=== PATIENT | male | born 1960 | race Caucasian/White ===

== ENCOUNTER 2020-10-30 04:11 | Inpatient (IN) | payer MEDICARE, MEDICAID ==
[~2020-10-30] VITALS: Ht 167.6 cm; Wt 64.2 kg
[~2020-10-30 04:11] MED LIST: HALOD50I IM
[2020-10-30 04:55] LABS: GLUCOSE,POINT OF CARE 126 MG/DL (70-110)
[2020-10-30 05:28] LABS: EOSINOPHILS % (AUTO) 7.1 % (1.0-6.0); HEMATOCRIT 38.7 % (41-53); HEMOGLOBIN 13.2 g/dL (13.5-17.5); LYMPHOCYTES # (AUTO) 2.1 K/uL (1.0-4.8); LYMPHOCYTES % (AUTO) 23.3 % (22.0-44.0); MEAN CORPUSCULAR HEMOGLOBIN 29.9 pg (26.0-34.0); MEAN CORPUSCULAR HGB CONC 34.1 G/dL (31.0-37.0); MEAN CORPUSCULAR VOLUME 88 fL (80-100); MONOCYTES # (AUTO) 0.9 K/uL (0.1-1.0); MONOCYTES % (AUTO) 10.2 % (2.0-9.0); NEUTROPHILS # (AUTO) 5.2 K/uL (1.8-7.7); NEUTROPHILS % (AUTO) 58.4 % (40.0-70.0); PLATELET COUNT (AUTO) 216 K/uL (150-450); RED BLOOD CELL COUNT(AUTO) 4.41 MIL/uL (4.50-5.90); RED CELL DISTRIBUTION WIDTH 14.3 % (11.5-14.5)
[2020-10-30 05:33] LABS: ANION GAP 9 mmol/L (8-16); CALCIUM, TOTAL 9.3 mg/dL (8.8-10.5); CARBON DIOXIDE 29 mmol/L (22-29); CHLORIDE 104 mmol/L (98-107); GLOMERULAR FILTR. RATE CALC > 60 mL/min (>60); GLUCOSE,RANDOM 85 mg/dL (70-110); POTASSIUM 3.7 mmol/L (3.5-5.1); SODIUM SERUM 142 mmol/L (136-145); UREA NITROGEN, BLOOD 16 mg/dL (7-18)
[2020-10-30 05:39] LABS: ALANINE AMINOTRANSFERASE 25 U/L (12-78); ALBUMIN 3.3 g/dL (3.4-5.0); ALKALINE PHOSPHATASE 93 U/L (46-116); ASPARTATE AMINOTRANSFERASE 51 U/L (15-37); BILIRUBIN,TOTAL 0.2 mg/dL (0.1-1.0); TOTAL PROTEIN, SERUM 7.3 g/dL (6.4-8.2)
[2020-10-30 05:53] LABS: AMPHET/METH SCREEN,URINE NEGATIVE (NEGATIVE); BARBITURATE SCREEN, URINE NEGATIVE (NEGATIVE); BENZODIAZEPINES SCREEN,URINE NEGATIVE (NEGATIVE); CANNABINOID SCREEN,URINE NEGATIVE (NEGATIVE); COCAINE SCREEN,URINE NEGATIVE (NEGATIVE); METHADONE SCREEN, URINE NEGATIVE (NEGATIVE); OPIATE SCREEN,URINE NEGATIVE (NEGATIVE)
[2020-10-30 05:56] LABS: PHENCYCLIDINE SCREEN,URINE NEGATIVE (NEGATIVE)
[2020-10-30 06:43] LABS: COVID AG,FIA SOURCE NASOPHARYNGEAL
[2020-10-30] MEDS ORDERED: PNEUMOCOCCAL VACCINE POLYVALENT 0.5 ML VIAL [PPSV23] IM. ONE (11:00)
[2020-10-30 11:03] LABS: GLUCOMETER DEV NAME(LOC) BV2S.; GLUCOSE,POINT OF CARE 83 MG/DL (70-110)
[2020-10-30] MEDS: ARIPiprazole 10 MG TABLET PO SCH (11:52)
[2020-10-30] MEDS: ESCITALOPRAM OXALATE 10 MG TABLET PO SCH (11:53)
[2020-10-30 16:06] VITALS: BP 125/74
[2020-10-30] MEDS: COLLOIDAL OATMEAL/DIMETH 227 GM LOTION TP SCH (16:13)
[2020-10-30] MEDS: NICOTINE 14 MG/24 HOUR PATCH TD SCH (16:13)
[2020-10-31 05:10] VITALS: BP 133/78
[2020-10-31 08:06] VITALS: BP 122/73
[2020-10-31] MEDS: NICOTINE 14 MG/24 HOUR PATCH TD SCH (09:00)
[2020-10-31] MEDS ORDERED: NICOTINE 14 MG/24 HOUR PATCH TD SCH (09:00)
[2020-10-31] MEDS: ARIPiprazole 10 MG TABLET PO SCH (09:00)
[2020-10-31] MEDS: ESCITALOPRAM OXALATE 10 MG TABLET PO SCH (09:00)
[2020-10-31] MEDS: COLLOIDAL OATMEAL/DIMETH 227 GM LOTION TP SCH ×2 (09:00→16:57)
[2020-10-31 16:02] VITALS: BP 111/61
[2020-11-01 01:08] VITALS: BP 149/75
[2020-11-01 07:50] LABS: CHOL/HDL RATIO 2.9 (4.2-7.3)
[2020-11-01] MEDS: ESCITALOPRAM OXALATE 10 MG TABLET PO SCH (08:07)
[2020-11-01] MEDS: ARIPiprazole 10 MG TABLET PO SCH (08:07)
[2020-11-01] MEDS: NICOTINE 14 MG/24 HOUR PATCH TD SCH (08:07)
[2020-11-01] MEDS: COLLOIDAL OATMEAL/DIMETH 227 GM LOTION TP SCH ×2 (08:08→17:15)
[2020-11-01 08:13] VITALS: BP 127/66
[2020-11-01 08:20] LABS: MAGNESIUM 2.2 mg/dL (1.80-2.40); THYROID STIMULATING HORMONE 3.35 uIU/mL (0.36-3.74)
[2020-11-01 16:07] VITALS: BP 100/66
[2020-11-02 02:14] VITALS: BP 100/67
[2020-11-02 08:05] VITALS: BP 92/63
[2020-11-02] MEDS: MULTIVITAMINS WITH MINERALS, THERAPEUTIC TABLET PO SCH (08:25)
[2020-11-02] MEDS: ARIPiprazole 10 MG TABLET PO SCH (08:25)
[2020-11-02] MEDS: ESCITALOPRAM OXALATE 10 MG TABLET PO SCH (08:25)
[2020-11-02] MEDS: NICOTINE 14 MG/24 HOUR PATCH TD SCH (08:26)
[2020-11-02] MEDS: COLLOIDAL OATMEAL/DIMETH 227 GM LOTION TP SCH ×2 (09:31→16:22)
[2020-11-02 16:10] VITALS: BP 101/68
[2020-11-02] MEDS: OLANZapine 5 MG RAPDIS TABLET PO PRN (16:12)
[2020-11-02] MEDS: LORazepam 2 MG TABLET PO PRN (16:12)
[2020-11-03 04:00] VITALS: BP 104/64
[2020-11-03 08:07] VITALS: BP 134/87
[2020-11-03] MEDS: ARIPiprazole 10 MG TABLET PO SCH (08:11)
[2020-11-03] MEDS: MULTIVITAMINS WITH MINERALS, THERAPEUTIC TABLET PO SCH (08:11)
[2020-11-03] MEDS: ESCITALOPRAM OXALATE 10 MG TABLET PO SCH (08:11)
[2020-11-03] MEDS: NICOTINE 14 MG/24 HOUR PATCH TD SCH (08:12)
[2020-11-03] MEDS: COLLOIDAL OATMEAL/DIMETH 227 GM LOTION TP SCH ×2 (08:18→16:42)
[2020-11-03 16:10] VITALS: BP 106/69
[2020-11-04 00:11] VITALS: BP 109/70
[2020-11-04 06:57] LABS: COVID AG,FIA SOURCE NASOPHARYNGEAL
[2020-11-04 08:06] VITALS: BP 105/66
[2020-11-04] MEDS: ARIPiprazole 10 MG TABLET PO SCH (08:32)
[2020-11-04] MEDS: MULTIVITAMINS WITH MINERALS, THERAPEUTIC TABLET PO SCH (08:32)
[2020-11-04] MEDS: ESCITALOPRAM OXALATE 10 MG TABLET PO SCH (08:32)
[2020-11-04] MEDS: NICOTINE 14 MG/24 HOUR PATCH TD SCH (08:33)
[2020-11-04] MEDS: COLLOIDAL OATMEAL/DIMETH 227 GM LOTION TP SCH ×2 (09:36→16:26)
[2020-11-04] MEDS ORDERED: HALO50VI4 IM (13:57)
[2020-11-04 16:05] VITALS: BP 101/65
[2020-11-05] VITALS: BP 111/71
[2020-11-05] MEDS: LORazepam 2 MG TABLET PO PRN (00:33)
[2020-11-05 08:16] VITALS: BP 109/65
[2020-11-05] MEDS: ESCITALOPRAM OXALATE 10 MG TABLET PO SCH (08:43)
[2020-11-05] MEDS: NICOTINE 14 MG/24 HOUR PATCH TD SCH (08:43)
[2020-11-05] MEDS: ARIPiprazole 10 MG TABLET PO SCH (08:43)
[2020-11-05] MEDS: MULTIVITAMINS WITH MINERALS, THERAPEUTIC TABLET PO SCH (08:43)
[2020-11-05] MEDS: COLLOIDAL OATMEAL/DIMETH 227 GM LOTION TP SCH ×2 (09:00→16:10)
[2020-11-05 16:07] VITALS: BP 106/68
[2020-11-06] VITALS: BP 96/53
[2020-11-06 08:05] VITALS: BP 109/66
[2020-11-06] MEDS: ESCITALOPRAM OXALATE 10 MG TABLET PO SCH (08:07)
[2020-11-06] MEDS: COLLOIDAL OATMEAL/DIMETH 227 GM LOTION TP SCH ×2 (08:07→16:32)
[2020-11-06] MEDS: NICOTINE 14 MG/24 HOUR PATCH TD SCH (08:07)
[2020-11-06] MEDS: MULTIVITAMINS WITH MINERALS, THERAPEUTIC TABLET PO SCH (08:07)
[2020-11-06] MEDS: ARIPiprazole 10 MG TABLET PO SCH (08:07)
[2020-11-06 16:18] VITALS: BP 110/67
[2020-11-07 00:06] VITALS: BP 130/83
[2020-11-07] MEDS: NICOTINE 14 MG/24 HOUR PATCH TD SCH (08:02)
[2020-11-07] MEDS: MULTIVITAMINS WITH MINERALS, THERAPEUTIC TABLET PO SCH (08:02)
[2020-11-07] MEDS: ESCITALOPRAM OXALATE 10 MG TABLET PO SCH (08:02)
[2020-11-07] MEDS: ARIPiprazole 10 MG TABLET PO SCH (08:02)
[2020-11-07 08:11] VITALS: BP 142/76
[2020-11-07] MEDS: COLLOIDAL OATMEAL/DIMETH 227 GM LOTION TP SCH ×2 (08:11→16:16)
[2020-11-07] MEDS: LORazepam 2 MG TABLET PO PRN ×2 (13:24→21:24)
[2020-11-07 16:24] VITALS: BP 101/62
[2020-11-08 06:17] VITALS: BP 105/64
[2020-11-08] MEDS: MULTIVITAMINS WITH MINERALS, THERAPEUTIC TABLET PO SCH (09:09)
[2020-11-08] MEDS: ARIPiprazole 10 MG TABLET PO SCH (09:09)
[2020-11-08] MEDS: NICOTINE 14 MG/24 HOUR PATCH TD SCH (09:09)
[2020-11-08] MEDS: ESCITALOPRAM OXALATE 10 MG TABLET PO SCH (09:10)
[2020-11-08] MEDS: COLLOIDAL OATMEAL/DIMETH 227 GM LOTION TP SCH ×2 (09:11→16:50)
[2020-11-08 13:19] VITALS: BP 129/83
[2020-11-08 16:36] VITALS: BP 129/81
[2020-11-08] MEDS: LORazepam 2 MG TABLET PO PRN (20:40)
[2020-11-09 00:08] VITALS: BP 145/80
[2020-11-09 08:23] VITALS: BP 118/71
[2020-11-09] MEDS: ESCITALOPRAM OXALATE 10 MG TABLET PO SCH (09:22)
[2020-11-09] MEDS: MULTIVITAMINS WITH MINERALS, THERAPEUTIC TABLET PO SCH (09:22)
[2020-11-09] MEDS: ARIPiprazole 10 MG TABLET PO SCH (09:22)
[2020-11-09] MEDS: NICOTINE 14 MG/24 HOUR PATCH TD SCH (09:22)
[2020-11-09] MEDS: COLLOIDAL OATMEAL/DIMETH 227 GM LOTION TP SCH ×2 (09:22→16:58)
[2020-11-09 16:22] VITALS: BP 110/68
[2020-11-10 06:30] VITALS: BP 98/56
[2020-11-10] MEDS: MULTIVITAMINS WITH MINERALS, THERAPEUTIC TABLET PO SCH (08:22)
[2020-11-10] MEDS: ESCITALOPRAM OXALATE 10 MG TABLET PO SCH (08:23)
[2020-11-10] MEDS: ARIPiprazole 10 MG TABLET PO SCH (08:23)
[2020-11-10] MEDS: COLLOIDAL OATMEAL/DIMETH 227 GM LOTION TP SCH ×2 (08:24→16:30)
[2020-11-10] MEDS: NICOTINE 14 MG/24 HOUR PATCH TD SCH (08:24)
[2020-11-10 08:40] VITALS: BP 139/90
[2020-11-10 16:22] VITALS: BP 131/84
[2020-11-11 04:43] VITALS: BP 111/73
[2020-11-11 07:19] LABS: COVID AG,FIA SOURCE NASOPHARYNGEAL
[2020-11-11] MEDS: ARIPiprazole 10 MG TABLET PO SCH (08:53)
[2020-11-11] MEDS: COLLOIDAL OATMEAL/DIMETH 227 GM LOTION TP SCH ×2 (08:53→16:28)
[2020-11-11] MEDS: MULTIVITAMINS WITH MINERALS, THERAPEUTIC TABLET PO SCH (08:53)
[2020-11-11] MEDS: NICOTINE 14 MG/24 HOUR PATCH TD SCH (08:53)
[2020-11-11] MEDS: ESCITALOPRAM OXALATE 10 MG TABLET PO SCH (08:53)
[2020-11-11 08:58] VITALS: BP 100/64
[2020-11-11 16:10] VITALS: BP 141/76
[2020-11-11] MEDS: LORazepam 2 MG TABLET PO PRN (18:28)
[2020-11-12 01:15] VITALS: BP 138/79
[2020-11-12 08:28] VITALS: BP 135/71
[2020-11-12] MEDS: NICOTINE 14 MG/24 HOUR PATCH TD SCH (08:37)
[2020-11-12] MEDS: MULTIVITAMINS WITH MINERALS, THERAPEUTIC TABLET PO SCH (08:37)
[2020-11-12] MEDS: ARIPiprazole 10 MG TABLET PO SCH (08:37)
[2020-11-12] MEDS: ESCITALOPRAM OXALATE 10 MG TABLET PO SCH (08:38)
[2020-11-12] MEDS: COLLOIDAL OATMEAL/DIMETH 227 GM LOTION TP SCH ×2 (09:09→16:30)
[2020-11-12] MEDS: LORazepam 2 MG TABLET PO PRN (13:15)
[2020-11-12 16:07] VITALS: BP 117/74
[2020-11-13 00:24] VITALS: BP 125/76
[2020-11-13] MEDS: MULTIVITAMINS WITH MINERALS, THERAPEUTIC TABLET PO SCH (08:03)
[2020-11-13] MEDS: NICOTINE 14 MG/24 HOUR PATCH TD SCH (08:03)
[2020-11-13] MEDS: ESCITALOPRAM OXALATE 10 MG TABLET PO SCH (08:03)
[2020-11-13] MEDS: ARIPiprazole 10 MG TABLET PO SCH (08:03)
[2020-11-13] MEDS: COLLOIDAL OATMEAL/DIMETH 227 GM LOTION TP SCH ×2 (08:04→17:03)
[2020-11-13 08:38] VITALS: BP 110/66
[2020-11-13 16:08] VITALS: BP 122/76
[2020-11-14 00:02] VITALS: BP 137/86
[2020-11-14] MEDS: ARIPiprazole 10 MG TABLET PO SCH (08:08)
[2020-11-14] MEDS: NICOTINE 14 MG/24 HOUR PATCH TD SCH (08:08)
[2020-11-14] MEDS: ESCITALOPRAM OXALATE 10 MG TABLET PO SCH (08:09)
[2020-11-14] MEDS: MULTIVITAMINS WITH MINERALS, THERAPEUTIC TABLET PO SCH (08:09)
[2020-11-14] MEDS: COLLOIDAL OATMEAL/DIMETH 227 GM LOTION TP SCH ×2 (08:09→16:35)
[2020-11-14 08:15] VITALS: BP 109/69
[2020-11-14 16:15] VITALS: BP 103/69
[2020-11-14] MEDS: ZOLPIDEM TARTRATE 10 MG TABLET PO PRN (21:24)
[2020-11-15 00:32] VITALS: BP 105/74
[2020-11-15 08:33] VITALS: BP 140/80
[2020-11-15] MEDS: ESCITALOPRAM OXALATE 10 MG TABLET PO SCH (08:33)
[2020-11-15] MEDS: ARIPiprazole 15 MG TABLET PO SCH (08:33)
[2020-11-15] MEDS: NICOTINE 14 MG/24 HOUR PATCH TD SCH (08:33)
[2020-11-15] MEDS: COLLOIDAL OATMEAL/DIMETH 227 GM LOTION TP SCH ×2 (08:33→16:31)
[2020-11-15] MEDS: MULTIVITAMINS WITH MINERALS, THERAPEUTIC TABLET PO SCH (08:33)
[2020-11-15 16:08] VITALS: BP 102/62
[2020-11-16] MEDS: ARIPiprazole 15 MG TABLET PO SCH (08:13)
[2020-11-16] MEDS: MULTIVITAMINS WITH MINERALS, THERAPEUTIC TABLET PO SCH (08:13)
[2020-11-16] MEDS: ESCITALOPRAM OXALATE 10 MG TABLET PO SCH (08:13)
[2020-11-16] MEDS: BISMUTH SUBSALICYLATE 262 MG CHEWABLE TABLET CHEW PRN ×2 (08:14→20:34)
[2020-11-16] MEDS: NICOTINE 14 MG/24 HOUR PATCH TD SCH (08:15)
[2020-11-16 08:36] VITALS: BP 107/69
[2020-11-16] MEDS: COLLOIDAL OATMEAL/DIMETH 227 GM LOTION TP SCH ×2 (10:30→16:29)
[2020-11-16 16:14] VITALS: BP 129/73
[2020-11-17] MEDS: ZOLPIDEM TARTRATE 10 MG TABLET PO PRN (00:29)
[2020-11-17 00:34] VITALS: BP 138/80
[2020-11-17] MEDS: MULTIVITAMINS WITH MINERALS, THERAPEUTIC TABLET PO SCH (08:17)
[2020-11-17] MEDS: NICOTINE 14 MG/24 HOUR PATCH TD SCH (08:17)
[2020-11-17] MEDS: ARIPiprazole 15 MG TABLET PO SCH (08:17)
[2020-11-17] MEDS: ESCITALOPRAM OXALATE 10 MG TABLET PO SCH (08:17)
[2020-11-17] MEDS: COLLOIDAL OATMEAL/DIMETH 227 GM LOTION TP SCH ×2 (08:17→16:19)
[2020-11-17 08:30] VITALS: BP 125/64
[2020-11-17 16:26] VITALS: BP 104/68
[2020-11-18 00:53] VITALS: BP 141/84
[2020-11-18] MEDS: ZOLPIDEM TARTRATE 10 MG TABLET PO PRN (01:02)
[2020-11-18 07:16] LABS: COVID AG,FIA SOURCE NASOPHARYNGEAL
[2020-11-18 08:10] VITALS: BP 128/68
[2020-11-18] MEDS: MULTIVITAMINS WITH MINERALS, THERAPEUTIC TABLET PO SCH (08:44)
[2020-11-18] MEDS: NICOTINE 14 MG/24 HOUR PATCH TD SCH (08:44)
[2020-11-18] MEDS: ARIPiprazole 15 MG TABLET PO SCH (08:44)
[2020-11-18] MEDS: ESCITALOPRAM OXALATE 10 MG TABLET PO SCH (08:44)
[2020-11-18] MEDS: COLLOIDAL OATMEAL/DIMETH 227 GM LOTION TP SCH ×2 (09:00→16:41)
[2020-11-18 16:06] VITALS: BP 138/80
[2020-11-19 00:45] VITALS: BP 149/80
[2020-11-19 08:13] VITALS: BP 127/71
[2020-11-19] MEDS: ESCITALOPRAM OXALATE 10 MG TABLET PO SCH (09:14)
[2020-11-19] MEDS: NICOTINE 14 MG/24 HOUR PATCH TD SCH (09:14)
[2020-11-19] MEDS: ARIPiprazole 15 MG TABLET PO SCH (09:14)
[2020-11-19] MEDS: MULTIVITAMINS WITH MINERALS, THERAPEUTIC TABLET PO SCH (09:14)
[2020-11-19] MEDS: COLLOIDAL OATMEAL/DIMETH 227 GM LOTION TP SCH ×2 (09:15→16:33)
[2020-11-19 16:09] VITALS: BP 106/76
[2020-11-20 01:34] VITALS: BP 112/67
[2020-11-20] MEDS: ZOLPIDEM TARTRATE 10 MG TABLET PO PRN ×2 (02:31→23:44)
[2020-11-20 08:20] VITALS: BP 110/74
[2020-11-20] MEDS: NICOTINE 14 MG/24 HOUR PATCH TD SCH (08:31)
[2020-11-20] MEDS: MULTIVITAMINS WITH MINERALS, THERAPEUTIC TABLET PO SCH (08:32)
[2020-11-20] MEDS: ARIPiprazole 15 MG TABLET PO SCH (08:32)
[2020-11-20] MEDS: ESCITALOPRAM OXALATE 10 MG TABLET PO SCH (08:32)
[2020-11-20] MEDS: COLLOIDAL OATMEAL/DIMETH 227 GM LOTION TP SCH ×2 (08:32→16:30)
[2020-11-20 16:22] VITALS: BP 118/61
[2020-11-21] VITALS: BP 122/71
[2020-11-21 08:34] VITALS: BP 108/70
[2020-11-21] MEDS: ESCITALOPRAM OXALATE 10 MG TABLET PO SCH (09:00)
[2020-11-21] MEDS: MULTIVITAMINS WITH MINERALS, THERAPEUTIC TABLET PO SCH (09:00)
[2020-11-21] MEDS: ARIPiprazole 15 MG TABLET PO SCH (09:00)
[2020-11-21] MEDS: COLLOIDAL OATMEAL/DIMETH 227 GM LOTION TP SCH ×2 (10:33→16:44)
[2020-11-21] MEDS: NICOTINE 14 MG/24 HOUR PATCH TD SCH (10:33)
[2020-11-21 16:16] VITALS: BP 131/71
[2020-11-22] MEDS: ZOLPIDEM TARTRATE 10 MG TABLET PO PRN (00:05)
[2020-11-22 00:39] VITALS: BP 144/80
[2020-11-22 08:08] VITALS: BP 101/61
[2020-11-22] MEDS: MULTIVITAMINS WITH MINERALS, THERAPEUTIC TABLET PO SCH (09:08)
[2020-11-22] MEDS: ESCITALOPRAM OXALATE 10 MG TABLET PO SCH (09:08)
[2020-11-22] MEDS: ARIPiprazole 10 MG TABLET PO SCH (09:08)
[2020-11-22] MEDS: NICOTINE 14 MG/24 HOUR PATCH TD SCH (09:09)
[2020-11-22] MEDS: COLLOIDAL OATMEAL/DIMETH 227 GM LOTION TP SCH ×2 (09:09→16:31)
[2020-11-22 16:22] VITALS: BP 102/64
[2020-11-23] MEDS: ZOLPIDEM TARTRATE 10 MG TABLET PO PRN (00:10)
[2020-11-23 00:53] VITALS: BP 112/73
[2020-11-23] MEDS: NICOTINE 14 MG/24 HOUR PATCH TD SCH (08:24)
[2020-11-23] MEDS: MULTIVITAMINS WITH MINERALS, THERAPEUTIC TABLET PO SCH (08:25)
[2020-11-23] MEDS: COLLOIDAL OATMEAL/DIMETH 227 GM LOTION TP SCH ×2 (08:25→16:32)
[2020-11-23] MEDS: ESCITALOPRAM OXALATE 10 MG TABLET PO SCH (08:25)
[2020-11-23] MEDS: ARIPiprazole 10 MG TABLET PO SCH (08:25)
[2020-11-23 08:32] VITALS: BP 130/77
[2020-11-23 16:11] VITALS: BP 109/66
[2020-11-24] MEDS: ZOLPIDEM TARTRATE 10 MG TABLET PO PRN ×2 (00:13→22:05)
[2020-11-24 00:31] VITALS: BP 138/76
[2020-11-24] MEDS: LORazepam 2 MG TABLET PO PRN (03:11)
[2020-11-24] MEDS: ARIPiprazole 10 MG TABLET PO SCH (08:16)
[2020-11-24] MEDS: ESCITALOPRAM OXALATE 10 MG TABLET PO SCH (08:16)
[2020-11-24] MEDS: MULTIVITAMINS WITH MINERALS, THERAPEUTIC TABLET PO SCH (08:16)
[2020-11-24] MEDS: COLLOIDAL OATMEAL/DIMETH 227 GM LOTION TP SCH ×2 (08:17→16:46)
[2020-11-24] MEDS: NICOTINE 14 MG/24 HOUR PATCH TD SCH (08:17)
[2020-11-24 08:29] VITALS: BP 144/80
[2020-11-24 16:13] VITALS: BP 116/62
[2020-11-25 02:26] VITALS: BP 106/63
[2020-11-25 07:18] LABS: COVID AG,FIA SOURCE NASOPHARYNGEAL
[2020-11-25 08:12] LABS: ANION GAP 5 mmol/L (8-16); CALCIUM, TOTAL 8.6 mg/dL (8.8-10.5); CARBON DIOXIDE 31 mmol/L (22-29); CHLORIDE 101 mmol/L (98-107); CREATINE KINASE, TOTAL ONLY 295 U/L (39-308); CREATININE 0.86 mg/dL (0.60-1.30); GLOMERULAR FILTR. RATE CALC > 60 mL/min (>60); GLUCOSE,RANDOM 98 mg/dL (70-110); POTASSIUM 5.1 mmol/L (3.5-5.1); SODIUM SERUM 137 mmol/L (136-145); UREA NITROGEN, BLOOD 19 mg/dL (7-18)
[2020-11-25 08:13] VITALS: BP 102/74
[2020-11-25] MEDS: ESCITALOPRAM OXALATE 10 MG TABLET PO SCH (08:19)
[2020-11-25] MEDS: NICOTINE 14 MG/24 HOUR PATCH TD SCH (08:19)
[2020-11-25] MEDS: ARIPiprazole 10 MG TABLET PO SCH (08:19)
[2020-11-25] MEDS: COLLOIDAL OATMEAL/DIMETH 227 GM LOTION TP SCH (09:30)
[2020-11-25] MEDS: MULTIVITAMINS WITH MINERALS, THERAPEUTIC TABLET PO SCH (09:30)
[2020-11-25 16:43] VITALS: BP 101/68
[2020-11-25] MEDS: ZOLPIDEM TARTRATE 10 MG TABLET PO PRN (21:29)
[2020-11-26 00:22] VITALS: BP 123/67
[2020-11-26 08:17] VITALS: BP 103/71
[2020-11-26] MEDS: COLLOIDAL OATMEAL/DIMETH 227 GM LOTION TP SCH ×2 (09:16→16:44)
[2020-11-26] MEDS: ESCITALOPRAM OXALATE 10 MG TABLET PO SCH (09:16)
[2020-11-26] MEDS: ARIPiprazole 10 MG TABLET PO SCH (09:16)
[2020-11-26] MEDS: MULTIVITAMINS WITH MINERALS, THERAPEUTIC TABLET PO SCH (09:16)
[2020-11-26] MEDS: NICOTINE 14 MG/24 HOUR PATCH TD SCH (09:17)
[2020-11-26 16:17] VITALS: BP 101/72
[2020-11-26] MEDS: ZOLPIDEM TARTRATE 10 MG TABLET PO PRN (22:43)
[2020-11-27 00:19] VITALS: BP 104/68
[2020-11-27] MEDS: MULTIVITAMINS WITH MINERALS, THERAPEUTIC TABLET PO SCH (08:14)
[2020-11-27] MEDS: ESCITALOPRAM OXALATE 10 MG TABLET PO SCH (08:14)
[2020-11-27] MEDS: ARIPiprazole 10 MG TABLET PO SCH (08:14)
[2020-11-27] MEDS: NICOTINE 14 MG/24 HOUR PATCH TD SCH (08:15)
[2020-11-27] MEDS: COLLOIDAL OATMEAL/DIMETH 227 GM LOTION TP SCH ×2 (08:16→15:59)
[2020-11-27 08:17] VITALS: BP 140/80
[2020-11-27] MEDS: LORazepam 2 MG TABLET PO PRN (16:12)
[2020-11-27 16:23] VITALS: BP 114/79
[2020-11-27] MEDS: TraZODone HCL 50 MG TABLET PO SCH (20:38)
[2020-11-28 00:59] VITALS: BP 118/72
[2020-11-28 08:33] VITALS: BP 116/72
[2020-11-28] MEDS: ESCITALOPRAM OXALATE 10 MG TABLET PO SCH (08:40)
[2020-11-28] MEDS: MULTIVITAMINS WITH MINERALS, THERAPEUTIC TABLET PO SCH (08:40)
[2020-11-28] MEDS: NICOTINE 14 MG/24 HOUR PATCH TD SCH (08:41)
[2020-11-28] MEDS: ARIPiprazole 10 MG TABLET PO SCH (08:41)
[2020-11-28] MEDS: COLLOIDAL OATMEAL/DIMETH 227 GM LOTION TP SCH ×2 (09:01→17:10)
[2020-11-28 16:22] VITALS: BP 138/68
[2020-11-28] MEDS: OLANZapine 5 MG RAPDIS TABLET PO PRN (17:11)
[2020-11-28] MEDS: TraZODone HCL 50 MG TABLET PO SCH (20:11)
[2020-11-28] MEDS: LORazepam 2 MG TABLET PO PRN (21:32)
[2020-11-29 01:10] VITALS: BP 115/79
[2020-11-29] MEDS: ARIPiprazole 10 MG TABLET PO SCH (09:10)
[2020-11-29] MEDS: MULTIVITAMINS WITH MINERALS, THERAPEUTIC TABLET PO SCH (09:10)
[2020-11-29] MEDS: NICOTINE 14 MG/24 HOUR PATCH TD SCH (09:10)
[2020-11-29] MEDS: ESCITALOPRAM OXALATE 10 MG TABLET PO SCH (09:10)
[2020-11-29] MEDS ORDERED: ESCI10 PO (09:38)
[2020-11-29] MEDS ORDERED: ARIP10TA38 PO (09:38)
[2020-11-29] MEDS ORDERED: TRAZ-252 PO (09:38)
[2020-11-29 10:05] VITALS: BP 133/133
[2020-11-29] MEDS: COLLOIDAL OATMEAL/DIMETH 227 GM LOTION TP SCH (10:09)
[2020-11-29 16:14] VITALS: BP 109/68
== END 2020-11-29 19:45 | disposition home or self-care (01) | DRG 885 ==
LOC: EMS 04:12 → B2X 07:25
DX: F20.0 Paranoid schizophrenia (principal); R45.851 Suicidal ideations; D64.9 Anemia, unspecified; E11.9 Type 2 diabetes mellitus without complications; E78.1 Pure hyperglyceridemia; E78.5 Hyperlipidemia, unspecified; Z20.822 Contact with and (suspected) exposure to COVID-19; F43.10 Post-traumatic stress disorder, unspecified; Z59.0 Homelessness; Z91.19 Patient's noncompliance with other medical treatment and regimen; Z72.0 Tobacco use; Z79.899 Other long term (current) drug therapy
CPT/HCPCS: 80048; 80053; 80061; 80074; 82550; 82962; 83036; 83735; 84443; 85025; 87426; 99285; G0480

== ENCOUNTER 2022-03-22 09:36 | Emergency (ER) | payer MEDICARE, MEDICAID ==
[~2022-03-22] VITALS: Ht 162.6 cm; Wt 72.7 kg
[~2022-03-22 09:36] MED LIST changes: +ARIP10TA38 PO; +ESCI10 PO; -HALOD50I IM; +TRAZ-252 PO
[2022-03-22] MEDS ORDERED: HALO5TAB23 PO ×2 (10:07→12:56)
[2022-03-22] MEDS ORDERED: ARIP10TA38 PO (12:56)
[2022-03-22 12:57] VITALS: BP 125/73
== END 2022-03-22 13:06 | disposition home or self-care (01) ==
LOC: EMS 09:45
DX: F20.9 Schizophrenia, unspecified (principal); Z76.0 Encounter for issue of repeat prescription; E11.9 Type 2 diabetes mellitus without complications; F17.210 Nicotine dependence, cigarettes, uncomplicated; F19.90 Other psychoactive substance use, unspecified, uncomplicated
CPT/HCPCS: 99283

== ENCOUNTER 2022-05-02 16:51 | Emergency (ER) | payer MEDICARE, MEDICAID ==
[~2022-05-02] VITALS: Ht 170.2 cm; Wt 70.0 kg
[~2022-05-02 16:51] MED LIST changes: +HALO5TAB23 PO
[2022-05-02 17:11] VITALS: BP 160/84
[2022-05-02] MEDS ORDERED: ACETAMINOPHEN 500 MG TABLET PO ONE (18:30)
== END 2022-05-02 19:40 | disposition home or self-care (01) ==
LOC: EMS 16:54
DX: F20.0 Paranoid schizophrenia (principal); E11.9 Type 2 diabetes mellitus without complications; F17.210 Nicotine dependence, cigarettes, uncomplicated; F16.90 Hallucinogen use, unspecified, uncomplicated; Z76.5 Malingerer [conscious simulation]; Z88.8 Allergy status to other drugs, medicaments and biological substances
CPT/HCPCS: 99284

== ENCOUNTER 2022-08-02 22:21 | Emergency (ER) | payer MEDICARE, OTHER ==
[~2022-08-02] VITALS: Ht 167.6 cm; Wt 72.7 kg
[2022-08-02] MEDS ORDERED: HALOPERIDOL 5 MG TABLET PO ONE (23:15)
[2022-08-03 06:04] VITALS: BP 125/73
== END 2022-08-03 06:21 | disposition home or self-care (01) ==
LOC: EMS 22:27
DX: F20.9 Schizophrenia, unspecified (principal); E11.9 Type 2 diabetes mellitus without complications; F17.210 Nicotine dependence, cigarettes, uncomplicated; Z88.8 Allergy status to other drugs, medicaments and biological substances; F19.90 Other psychoactive substance use, unspecified, uncomplicated
CPT/HCPCS: 99284; Z7502; Z7610

== ENCOUNTER 2024-06-20 15:46 | Inpatient (IN) | payer MEDICARE ==
[~2024-06-20] VITALS: Ht 170.2 cm; Wt 61.4 kg
[~2024-06-20 15:46] MED LIST changes: +ESCI-8 PO; -ESCI10 PO; -HALO5TAB23 PO; -TRAZ-252 PO
[2024-06-20] MEDS ORDERED: HALOPERIDOL 5 MG TABLET PO PRN (16:30)
[2024-06-20] MEDS ORDERED: ZOLPIDEM TARTRATE 10 MG TABLET PO PRN (16:30)
[2024-06-20] MEDS: CloNIDine HCL 0.2 MG TABLET PO ONE (17:11)
[2024-06-20] MEDS: LORazepam 2 MG TABLET PO PRN (17:11)
[2024-06-20 17:35] LABS: COVID AG,FIA SOURCE NASAL SWAB
[2024-06-20 18:03] LABS: SARS-COV2 (COVID) ANTIGEN,FIA Negative (Negative)
[2024-06-20 20:46] VITALS: O2SAT 98
[2024-06-20 20:57] LABS: BASOPHILS % (AUTO) 0.9 % (0.0-2.0); HEMATOCRIT 38.7 % (41-53); HEMOGLOBIN 12.9 g/dL (13.5-17.5); LYMPHOCYTES # (AUTO) 2.6 K/uL (1.0-4.8); MEAN CORPUSCULAR HEMOGLOBIN 29.9 pg (26.0-34.0); MEAN CORPUSCULAR HGB CONC 33.2 G/dL (31.0-37.0); MEAN CORPUSCULAR VOLUME 90 fL (80-100); MONOCYTES % (AUTO) 11.3 % (2.0-9.0); NEUTROPHILS % (AUTO) 56.8 % (40.0-70.0); PLATELET COUNT (AUTO) 207 K/uL (150-450); RED CELL DISTRIBUTION WIDTH 14.1 % (11.5-14.5); WHITE BLOOD COUNT (AUTO) 8.8 K/uL (4.5-11.0)
[2024-06-20] MEDS: ESCITALOPRAM OXALATE 20 MG TABLET PO ONE (21:04)
[2024-06-20 21:06] LABS: ANION GAP 8 mmol/L (8-16); CALCIUM, TOTAL 8.8 mg/dL (8.8-10.5); CARBON DIOXIDE 29 mmol/L (22-29); CHLORIDE 107 mmol/L (98-107); CREATININE 0.92 mg/dL (0.60-1.30); GLOMERULAR FILTR. RATE CALC > 60 mL/min (>60); GLUCOSE,RANDOM 98 mg/dL (70-110); SODIUM SERUM 144 mmol/L (136-145); UREA NITROGEN, BLOOD 21 mg/dL (7-18)
[2024-06-20 21:38] LABS: ALCOHOL, BLOOD (SERUM) < 3 mg/dL (0-10)
[2024-06-20 23:30] VITALS: BP 88/56; PULSE 68; RESP 18; TEMP 98; O2SAT 99
[2024-06-21] VITALS: BP 112/71; PULSE 53; RESP 18; O2SAT 99
[2024-06-21] MEDS ORDERED: INFLUENZA VIRUS VACCINE TVS (6MO+) 2024-25/PF 45 MCG/0.5 ML SYRINGE IM. ONE (01:45)
[2024-06-21 08:01] LABS: CHOL/HDL RATIO 2.4 (4.2-7.3)
[2024-06-21 08:02] LABS: HEMOGLOBIN A1C 5.7 % (3.8-5.6)
[2024-06-21 08:52] VITALS: BP 126/71; PULSE 82; RESP 18; TEMP 97.8; O2SAT 99
[2024-06-21 09:43] LABS: APPEARANCE,URINE CLEAR (CLEAR); BILIRUBIN,URINE NEGATIVE (NEGATIVE); COLOR,URINE LIGHT YELLOW (YELLOW); GLUCOSE, URINE (UA) NEGATIVE (NEGATIVE); KETONES,URINE NEGATIVE (NEGATIVE); LEUKOCYTE ESTERASE ,URINE NEGATIVE (NEGATIVE); NITRATE,URINE NEGATIVE (NEGATIVE); OCCULT BLOOD,URINE NEGATIVE (NEGATIVE); PROTEIN,URINE NEGATIVE (NEGATIVE); UROBILINOGEN,URINE <=1.0 mg/dL (<=1.0)
[2024-06-21 09:50] LABS: ALCOHOL, URINE DRUG SCREEN NEGATIVE (NEGATIVE); AMPHET/METH SCREEN,URINE NEGATIVE (NEGATIVE); BARBITURATE SCREEN, URINE NEGATIVE (NEGATIVE); BENZODIAZEPINES SCREEN,URINE NEGATIVE (NEGATIVE); CANNABINOID SCREEN,URINE NEGATIVE (NEGATIVE); COCAINE SCREEN,URINE NEGATIVE (NEGATIVE); METHADONE SCREEN, URINE NEGATIVE (NEGATIVE); OPIATE SCREEN,URINE NEGATIVE (NEGATIVE); PHENCYCLIDINE SCREEN,URINE NEGATIVE (NEGATIVE)
[2024-06-21] MEDS ORDERED: LOPERAMIDE HCL 2 MG CAPSULE PO PRN (12:00)
[2024-06-21] MEDS ORDERED: GuaiFENesin/D-METHORPHAN [SUGAR-FREE] 200-20MG/10 ML SYRUP UDCUP PO PRN (12:00)
[2024-06-21] MEDS ORDERED: HydrOXYzine PAMOATE 50 MG CAPSULE PO PRN (12:00)
[2024-06-21] MEDS ORDERED: ACETAMINOPHEN 325 MG TABLET PO PRN (12:00)
[2024-06-21] MEDS ORDERED: TUBERCULIN, PURIFIED PROTEIN DERIVATIVE 5 TU/0.1 ML SYRINGE ID ONE (12:00)
[2024-06-21] MEDS ORDERED: PROMETHAZINE HCL 25 MG TABLET PO PRN (12:00)
[2024-06-21] MEDS ORDERED: MAG HYDROX/ALUMINUM HYD/SIMETH ES 30 ML SUSPENSION UDCUP PO PRN (12:00)
[2024-06-21] MEDS ORDERED: MAGNESIUM HYDROXIDE SUSPENSION 30 ML UDCUP PO PRN (12:00)
[2024-06-21] MEDS: ARIPiprazole ER SUSPENSION 400 MG PRE-FILLED DUAL CHAMBER SYRINGE IM ONE (13:54)
[2024-06-21] MEDS: THIAMINE 100 MG TABLET PO SCH (16:13)
[2024-06-21 20:00] VITALS: BP 127/95; PULSE 82; RESP 19; TEMP 98.5; O2SAT 96
[2024-06-21] MEDS: ESCITALOPRAM OXALATE 10 MG TABLET PO SCH (20:36)
[2024-06-21] MEDS: ARIPiprazole 15 MG TABLET PO SCH (20:36)
[2024-06-21] MEDS: MELATONIN 5 MG TABLET PO SCH (20:36)
[2024-06-22] MEDS: MULTIVITAMINS WITH MINERALS, THERAPEUTIC TABLET PO SCH (09:00)
[2024-06-22] MEDS: FOLIC ACID 1 MG TABLET PO SCH (09:17)
[2024-06-22] MEDS: OMEGA-3/DHA/EPA/FISH OIL 1,000 MG CAPSULE PO SCH (09:18)
[2024-06-22] MEDS: NALTREXONE HCL 50 MG TABLET PO SCH (09:18)
[2024-06-22 09:29] VITALS: BP 151/85; PULSE 79; RESP 18; TEMP 98.2; O2SAT 100
[2024-06-22 21:36] VITALS: BP 139/74; PULSE 74; RESP 18; TEMP 97.7; O2SAT 99
[2024-06-23 09:09] VITALS: BP_SYST 156; BP_SYST 99; BP_DIAS 61; BP_DIAS 86; PULSE 80; RESP 18; TEMP 97.6; O2SAT 98
[2024-06-23 21:37] VITALS: BP 130/76; PULSE 80; RESP 18; TEMP 97.6; O2SAT 96
[2024-06-24 08:00] VITALS: BP 165/83; PULSE 68; TEMP 97.3; O2SAT 100
[2024-06-24] MEDS: NICOTINE 21 MG/24 HOUR PATCH TD SCH (14:05)
[2024-06-24 20:28] VITALS: BP 98/48; PULSE 82; RESP 18; TEMP 97.8; O2SAT 97
[2024-06-25 08:31] VITALS: BP 140/48; PULSE 87; RESP 20; TEMP 98.2; O2SAT 99
[2024-06-25 20:24] VITALS: BP 150/59; PULSE 78; RESP 18; TEMP 97.9; O2SAT 94
[2024-06-26 08:00] VITALS: BP 133/70; PULSE 85; RESP 18; TEMP 98.1; O2SAT 98
[2024-06-26 21:28] VITALS: BP 113/77; PULSE 93; RESP 18; TEMP 98.4; O2SAT 99
[2024-06-26] MEDS: ARIPiprazole 10 MG TABLET PO SCH (21:36)
[2024-06-27 09:48] VITALS: BP 102/73; PULSE 81; RESP 17; TEMP 97.4; O2SAT 97
[2024-06-27 21:44] VITALS: BP 95/61; PULSE 77; RESP 17; TEMP 98.1; O2SAT 98
[2024-06-28 11:07] VITALS: BP 137/98; PULSE 75; RESP 18; TEMP 97; O2SAT 98
[2024-06-28 22:15] VITALS: BP 140/90; PULSE 80; RESP 19; TEMP 98; O2SAT 97
[2024-06-29 09:20] VITALS: BP 146/79; PULSE 83; RESP 18; TEMP 97.9; O2SAT 96
[2024-06-29 21:48] VITALS: PULSE 80; RESP 18; TEMP 97.5
[2024-06-30 08:00] VITALS: BP 95/60; PULSE 95; RESP 18; TEMP 97.6; O2SAT 96
[2024-06-30 22:32] VITALS: BP 107/59; PULSE 69; RESP 18; TEMP 97.5; O2SAT 98
[2024-07-01 09:29] VITALS: BP 168/78; PULSE 69; RESP 18; TEMP 97.6; O2SAT 95
[2024-07-01 21:42] VITALS: BP 117/76; PULSE 78; RESP 18; TEMP 97.6; O2SAT 98
[2024-07-02 09:00] VITALS: BP 125/63; PULSE 82; RESP 19; TEMP 97.7; O2SAT 95
[2024-07-02 20:06] VITALS: BP 126/62; PULSE 89; RESP 18; TEMP 98.4; O2SAT 97
[2024-07-03 12:34] VITALS: BP 166/69; PULSE 94; RESP 18; TEMP 98.4; O2SAT 95
[2024-07-03] MEDS ORDERED: MELA5TAB40 PO (19:41)
[2024-07-03] MEDS ORDERED: ARIP10TA38 PO (19:41)
[2024-07-03] MEDS ORDERED: ARIP400S3 IM (19:41)
[2024-07-03] MEDS ORDERED: NALT50TA33 PO (19:41)
[2024-07-03] MEDS ORDERED: OMEG100033 PO (19:41)
[2024-07-03 22:40] VITALS: BP 113/67; PULSE 80; RESP 18; TEMP 98.1; O2SAT 98
[2024-07-19] MEDS ORDERED: ARIPiprazole ER SUSPENSION 400 MG PRE-FILLED DUAL CHAMBER SYRINGE IM SCH (09:00)
== END 2024-07-04 11:20 | disposition home or self-care (01) | DRG 885 ==
LOC: EMS 15:46 → 3EX 23:25
PROVIDERS: ADMIT Psychiatry & Neurology Psychiatry; ATTEND Psychiatry & Neurology Psychiatry
PROC: GZHZZZZ Group Psychotherapy (ICD-10-PCS; principal; 2024-06-22)
PROC: GZ56ZZZ Individual Psychotherapy, Supportive (ICD-10-PCS; 2024-06-22)
PROC: GZ58ZZZ Individual Psychotherapy, Cognitive-Behavioral (ICD-10-PCS; 2024-06-22)
DX: F25.0 Schizoaffective disorder, bipolar type (principal); R45.851 Suicidal ideations; F17.210 Nicotine dependence, cigarettes, uncomplicated; Z20.822 Contact with and (suspected) exposure to COVID-19; D64.9 Anemia, unspecified; F41.9 Anxiety disorder, unspecified; I10 Essential (primary) hypertension; T43.8X6A Underdosing of other psychotropic drugs, initial encounter; Y92.89 Other specified places as the place of occurrence of the external cause; Z88.8 Allergy status to other drugs, medicaments and biological substances; Z79.899 Other long term (current) drug therapy; Z91.148 Patient's other noncompliance with medication regimen for other reason; Z63.9 Problem related to primary support group, unspecified; Z55.9 Problems related to education and literacy, unspecified; Z65.3 Problems related to other legal circumstances; Z59.9 Problem related to housing and economic circumstances, unspecified
CPT/HCPCS: 80048; 80061; 80307; 81003; 83036; 85025; 99285; G0378; G0480; J0401

== ENCOUNTER 2024-07-06 01:04 | Inpatient (IN) | payer MEDICARE, OTHER ==
[~2024-07-06] VITALS: Ht 170.2 cm; Wt 64.6 kg
[~2024-07-06 01:04] MED LIST changes: +ARIP400S3 IM; -ESCI-8 PO; +MELA5TAB40 PO; +NALT50TA33 PO; +OMEG100033 PO
[2024-07-06 01:51] LABS: BASOPHILS % (AUTO) 0.9 % (0.0-2.0); EOSINOPHILS % (AUTO) 2.7 % (1.0-6.0); HEMATOCRIT 42.5 % (41-53); HEMOGLOBIN 14.2 g/dL (13.5-17.5); LYMPHOCYTES # (AUTO) 3.5 K/uL (1.0-4.8); LYMPHOCYTES % (AUTO) 35.7 % (22.0-44.0); MEAN CORPUSCULAR HEMOGLOBIN 30.2 pg (26.0-34.0); MEAN CORPUSCULAR HGB CONC 33.4 G/dL (31.0-37.0); MEAN CORPUSCULAR VOLUME 91 fL (80-100); MONOCYTES # (AUTO) 1.1 K/uL (0.1-1.0); NEUTROPHILS # (AUTO) 4.9 K/uL (1.8-7.7); NEUTROPHILS % (AUTO) 49.7 % (40.0-70.0); PLATELET COUNT (AUTO) 227 K/uL (150-450); RED CELL DISTRIBUTION WIDTH 14.4 % (11.5-14.5); WHITE BLOOD COUNT (AUTO) 9.8 K/uL (4.5-11.0)
[2024-07-06 02:08] LABS: ANION GAP 6 mmol/L (8-16); CALCIUM, TOTAL 9.2 mg/dL (8.8-10.5); CARBON DIOXIDE 32 mmol/L (22-29); CHLORIDE 102 mmol/L (98-107); CREATININE 1.18 mg/dL (0.60-1.30); GLOMERULAR FILTR. RATE CALC > 60 mL/min (>60); GLUCOSE,RANDOM 128 mg/dL (70-110); POTASSIUM 3.9 mmol/L (3.5-5.1); SODIUM SERUM 140 mmol/L (136-145); UREA NITROGEN, BLOOD 25 mg/dL (7-18)
[2024-07-06 02:12] LABS: ALCOHOL, BLOOD (SERUM) < 3 mg/dL (0-10)
[2024-07-06 03:21] LABS: COVID AG,FIA SOURCE NASAL SWAB
[2024-07-06 03:37] LABS: SARS-COV2 (COVID) ANTIGEN,FIA Negative (Negative)
[2024-07-06] MEDS: LORazepam 2 MG TABLET PO ONE (05:47)
[2024-07-06] MEDS: DiphenhydrAMINE HCL 25 MG CAPSULE PO ONE (05:47)
[2024-07-06] MEDS: HALOPERIDOL 5 MG TABLET PO ONE (05:47)
[2024-07-06] MEDS ORDERED: ZOLPIDEM TARTRATE 10 MG TABLET PO PRN (07:00)
[2024-07-06] MEDS ORDERED: HALOPERIDOL 5 MG TABLET PO PRN (07:00)
[2024-07-06] MEDS ORDERED: LORazepam 2 MG TABLET PO PRN (07:00)
[2024-07-06 09:37] LABS: ALCOHOL, URINE DRUG SCREEN NEGATIVE (NEGATIVE); AMPHET/METH SCREEN,URINE NEGATIVE (NEGATIVE); BARBITURATE SCREEN, URINE NEGATIVE (NEGATIVE); BENZODIAZEPINES SCREEN,URINE NEGATIVE (NEGATIVE); CANNABINOID SCREEN,URINE NEGATIVE (NEGATIVE); COCAINE SCREEN,URINE NEGATIVE (NEGATIVE); METHADONE SCREEN, URINE NEGATIVE (NEGATIVE); OPIATE SCREEN,URINE NEGATIVE (NEGATIVE); PHENCYCLIDINE SCREEN,URINE NEGATIVE (NEGATIVE)
[2024-07-06 09:38] LABS: APPEARANCE,URINE CLEAR (CLEAR); BILIRUBIN,URINE NEGATIVE (NEGATIVE); COLOR,URINE YELLOW (YELLOW); GLUCOSE, URINE (UA) NEGATIVE (NEGATIVE); KETONES,URINE TRACE mg/dL (NEGATIVE); LEUKOCYTE ESTERASE ,URINE NEGATIVE (NEGATIVE); NITRATE,URINE NEGATIVE (NEGATIVE); OCCULT BLOOD,URINE NEGATIVE (NEGATIVE); PH,URINE 5.5 (5.0-8.0); PH,URINE DRUG SCREEN 5.5 (5.0-8.0); PROTEIN,URINE TRACE mg/dL (NEGATIVE); UROBILINOGEN,URINE <=1.0 mg/dL (<=1.0)
[2024-07-06 10:14] VITALS: O2SAT 100
[2024-07-06] MEDS: NICOTINE 21 MG/24 HOUR PATCH TD SCH (12:30)
[2024-07-06 13:22] VITALS: BP 106/67; PULSE 90; RESP 17; TEMP 97.5; O2SAT 95
[2024-07-06] MEDS ORDERED: LOPERAMIDE HCL 2 MG CAPSULE PO PRN (14:30)
[2024-07-06] MEDS ORDERED: CloNIDine HCL 0.1 MG TABLET PO PRN (14:30)
[2024-07-06] MEDS ORDERED: GuaiFENesin/D-METHORPHAN [SUGAR-FREE] 200-20MG/10 ML SYRUP UDCUP PO PRN (14:30)
[2024-07-06] MEDS ORDERED: IBUPROFEN 400 MG TABLET PO PRN (14:30)
[2024-07-06] MEDS ORDERED: MAG HYDROX/ALUMINUM HYD/SIMETH ES 30 ML SUSPENSION UDCUP PO PRN (14:30)
[2024-07-06] MEDS ORDERED: ALBUTEROL SULFATE HFA 90 MCG/PUFF 8 GM INHALER IH PRN (14:30)
[2024-07-06] MEDS ORDERED: DOCUSATE SODIUM 100 MG CAPSULE PO PRN (14:30)
[2024-07-06] MEDS ORDERED: PETROLATUM,WHITE 28 GM JELLY TP PRN (14:30)
[2024-07-06] MEDS ORDERED: ONDANSETRON 4 MG TABLET PO PRN (14:30)
[2024-07-06] MEDS ORDERED: MAGNESIUM HYDROXIDE SUSPENSION 30 ML UDCUP PO PRN (14:30)
[2024-07-06] MEDS: MELATONIN 5 MG TABLET PO SCH (20:15)
[2024-07-06] MEDS: OLANZapine 5 MG RAPDIS TABLET PO SCH (20:16)
[2024-07-06 20:24] VITALS: BP 94/74; PULSE 100; RESP 18; TEMP 97.8; O2SAT 97
[2024-07-06] MEDS: NICOTINE 14 MG/24 HOUR PATCH TD PRN (20:59)
[2024-07-06] MEDS ORDERED: MELATONIN 5 MG TABLET PO SCH (21:00)
[2024-07-07] MEDS: ACETAMINOPHEN 325 MG TABLET PO PRN (06:23)
[2024-07-07 06:52] VITALS: BP 151/73; PULSE 85; RESP 18; TEMP 97.6; O2SAT 95
[2024-07-07] MEDS: OMEGA-3/DHA/EPA/FISH OIL 1,000 MG CAPSULE PO SCH (08:18)
[2024-07-07] MEDS: NALTREXONE HCL 50 MG TABLET PO SCH (08:18)
[2024-07-07 08:58] VITALS: BP 166/78; PULSE 88; RESP 18; TEMP 98.1; O2SAT 99
[2024-07-07 20:46] VITALS: BP 132/82; PULSE 76; RESP 18; TEMP 97.7; O2SAT 98
[2024-07-08 09:36] VITALS: BP 149/97; PULSE 82; RESP 18; TEMP 97.9; O2SAT 99
[2024-07-08 20:12] VITALS: BP 151/77; PULSE 109; RESP 18; TEMP 97.6
[2024-07-09 08:11] VITALS: BP 112/86; PULSE 95; RESP 18; TEMP 97.8; O2SAT 99
[2024-07-09] MEDS: OLANZapine 5 MG RAPDIS TABLET PO PRN (12:45)
[2024-07-09 22:13] VITALS: BP 149/89; PULSE 100; RESP 18; TEMP 96.7; O2SAT 97
[2024-07-10 08:47] VITALS: BP 134/70; PULSE 87; RESP 17; TEMP 96.1; O2SAT 99
[2024-07-10 20:17] VITALS: BP 139/77; PULSE 95; RESP 18; TEMP 98.3; O2SAT 98
[2024-07-10] MEDS: HALOPERIDOL 10 MG TABLET PO SCH (20:42)
[2024-07-10] MEDS: DiphenhydrAMINE HCL 25 MG CAPSULE PO SCH (20:42)
[2024-07-11] MEDS: HALOPERIDOL 5 MG TABLET PO PRN (05:42)
[2024-07-11 08:28] VITALS: BP 143/92; PULSE 100; RESP 17; TEMP 97.8; O2SAT 98
[2024-07-11 20:10] VITALS: BP 117/84; PULSE 98; RESP 18; TEMP 97.7; O2SAT 95
[2024-07-12 08:25] VITALS: BP 108/72; PULSE 99; RESP 17; TEMP 98.3; O2SAT 96
[2024-07-12 20:19] VITALS: BP 156/78; PULSE 87; RESP 18; TEMP 98.4; O2SAT 97
[2024-07-13 08:25] VITALS: BP 106/66; PULSE 76; RESP 16; TEMP 97.9; O2SAT 96
[2024-07-13] MEDS: PNEUMOCOCCAL VACCINE POLYVALENT 0.5 ML SYRINGE [PPSV23] IM. ONE (08:27)
[2024-07-13] MEDS: INFLUENZA VIRUS VACCINE TVS (6MO+) 2024-25/PF 45 MCG/0.5 ML SYRINGE IM. ONE (08:28)
[2024-07-13 20:18] VITALS: BP 112/93; PULSE 92; RESP 18; TEMP 98.1; O2SAT 96
[2024-07-14 08:19] VITALS: BP 143/88; PULSE 83; RESP 18; TEMP 97.7; O2SAT 96
[2024-07-14 20:35] VITALS: BP 141/88; PULSE 88; RESP 18; TEMP 97.8; O2SAT 95
[2024-07-15 08:17] VITALS: BP 152/90; PULSE 92; RESP 18; TEMP 97.6; O2SAT 97
[2024-07-15 20:00] VITALS: BP 144/82; PULSE 100; RESP 19; TEMP 98; O2SAT 100
[2024-07-16 08:17] VITALS: BP 140/80; PULSE 85; RESP 18; TEMP 97.5; O2SAT 98
[2024-07-16 20:23] VITALS: BP 97/70; PULSE 97; RESP 12; TEMP 96.2; O2SAT 96
[2024-07-17 08:16] VITALS: BP 103/58; PULSE 83; RESP 18; TEMP 98; O2SAT 95
[2024-07-17 20:20] VITALS: BP 115/77; PULSE 99; RESP 18; TEMP 97.9; O2SAT 95
[2024-07-18 08:30] VITALS: BP 107/69; PULSE 68; RESP 18; TEMP 97.7; O2SAT 98
[2024-07-18] MEDS ORDERED: DIPH-1243 PO (09:46)
[2024-07-18] MEDS ORDERED: HALO10TA21 PO (09:46)
== END 2024-07-18 14:00 | disposition home or self-care (01) | DRG 885 ==
LOC: EMS 01:05 → B2X 09:39
PROVIDERS: ADMIT Psychiatry & Neurology Psychiatry; ATTEND Psychiatry & Neurology Psychiatry
PROC: GZHZZZZ Group Psychotherapy (ICD-10-PCS; principal; 2024-07-06)
PROC: GZ56ZZZ Individual Psychotherapy, Supportive (ICD-10-PCS; 2024-07-06)
DX: F25.9 Schizoaffective disorder, unspecified (principal); R45.851 Suicidal ideations; I10 Essential (primary) hypertension; E78.5 Hyperlipidemia, unspecified; F17.210 Nicotine dependence, cigarettes, uncomplicated; Z20.822 Contact with and (suspected) exposure to COVID-19; G40.409 Other generalized epilepsy and epileptic syndromes, not intractable, without status epilepticus; G47.00 Insomnia, unspecified; J44.9 Chronic obstructive pulmonary disease, unspecified; F19.10 Other psychoactive substance abuse, uncomplicated; Z55.9 Problems related to education and literacy, unspecified; Z59.9 Problem related to housing and economic circumstances, unspecified; Z63.9 Problem related to primary support group, unspecified; Z65.3 Problems related to other legal circumstances
CPT/HCPCS: 80048; 80307; 81003; 85025; 99285; G0480

== ENCOUNTER 2024-07-31 01:28 | Inpatient (IN) | payer OTHER ==
[~2024-07-31] VITALS: Ht 170.2 cm; Wt 65.9 kg
[~2024-07-31 01:28] MED LIST changes: +DIPH-1243 PO; +HALO10TA21 PO
[2024-07-31 02:54] LABS: BASOPHILS % (AUTO) 0.8 % (0.0-2.0); EOSINOPHILS % (AUTO) 1.5 % (1.0-6.0); HEMATOCRIT 40.1 % (41-53); HEMOGLOBIN 13.8 g/dL (13.5-17.5); LYMPHOCYTES # (AUTO) 3.2 K/uL (1.0-4.8); LYMPHOCYTES % (AUTO) 22.7 % (22.0-44.0); MEAN CORPUSCULAR HEMOGLOBIN 30.7 pg (26.0-34.0); MEAN CORPUSCULAR HGB CONC 34.3 G/dL (31.0-37.0); MEAN CORPUSCULAR VOLUME 89 fL (80-100); MONOCYTES # (AUTO) 1.8 K/uL (0.1-1.0); MONOCYTES % (AUTO) 12.4 % (2.0-9.0); NEUTROPHILS # (AUTO) 8.9 K/uL (1.8-7.7); NEUTROPHILS % (AUTO) 62.6 % (40.0-70.0); PLATELET COUNT (AUTO) 259 K/uL (150-450); RED BLOOD CELL COUNT(AUTO) 4.49 MIL/uL (4.50-5.90); WHITE BLOOD COUNT (AUTO) 14.3 K/uL (4.5-11.0)
[2024-07-31 03:05] LABS: ANION GAP 7 mmol/L (8-16); CARBON DIOXIDE 31 mmol/L (22-29); CHLORIDE 101 mmol/L (98-107); GLOMERULAR FILTR. RATE CALC > 60 mL/min (>60); GLUCOSE,RANDOM 94 mg/dL (70-110); SODIUM SERUM 139 mmol/L (136-145); UREA NITROGEN, BLOOD 20 mg/dL (7-18)
[2024-07-31 03:19] LABS: ALCOHOL, BLOOD (SERUM) < 3 mg/dL (0-10)
[2024-07-31 04:50] LABS: COVID AG,FIA SOURCE NASAL SWAB
[2024-07-31 05:11] LABS: SARS-COV2 (COVID) ANTIGEN,FIA Negative (Negative)
[2024-07-31 06:43] LABS: APPEARANCE,URINE CLEAR (CLEAR); BILIRUBIN,URINE NEGATIVE (NEGATIVE); COLOR,URINE LIGHT YELLOW (YELLOW); GLUCOSE, URINE (UA) NEGATIVE (NEGATIVE); KETONES,URINE NEGATIVE (NEGATIVE); LEUKOCYTE ESTERASE ,URINE TRACE (NEGATIVE); NITRATE,URINE NEGATIVE (NEGATIVE); OCCULT BLOOD,URINE NEGATIVE (NEGATIVE); PROTEIN,URINE TRACE mg/dL (NEGATIVE); SPECIFIC GRAVITIY, URINE 1.023 (1.003-1.030); UROBILINOGEN,URINE <=1.0 mg/dL (<=1.0)
[2024-07-31 06:52] LABS: AMPHET/METH SCREEN,URINE NEGATIVE (NEGATIVE); BARBITURATE SCREEN, URINE NEGATIVE (NEGATIVE); BENZODIAZEPINES SCREEN,URINE NEGATIVE (NEGATIVE); CANNABINOID SCREEN,URINE NEGATIVE (NEGATIVE); COCAINE SCREEN,URINE NEGATIVE (NEGATIVE); METHADONE SCREEN, URINE NEGATIVE (NEGATIVE); OPIATE SCREEN,URINE NEGATIVE (NEGATIVE); PHENCYCLIDINE SCREEN,URINE NEGATIVE (NEGATIVE)
[2024-07-31 06:56] LABS: ALCOHOL, URINE DRUG SCREEN NEGATIVE (NEGATIVE)
[2024-07-31 07:12] LABS: BACTERIA,URINE None Seen /HPF (None Seen); RBC,URINE 0-2 /HPF (0-2); SQUAMOUS EPITHELIAL CELL,UR Few /LPF (None Seen)
[2024-07-31] MEDS ORDERED: ZOLPIDEM TARTRATE 10 MG TABLET PO PRN (08:00)
[2024-07-31] MEDS ORDERED: LORazepam 2 MG TABLET PO PRN (08:00)
[2024-07-31] MEDS ORDERED: GuaiFENesin/D-METHORPHAN [SUGAR-FREE] 200-20MG/10 ML SYRUP UDCUP PO PRN (08:00)
[2024-07-31] MEDS ORDERED: LOPERAMIDE HCL 2 MG CAPSULE PO PRN (08:00)
[2024-07-31] MEDS ORDERED: MAG HYDROX/ALUMINUM HYD/SIMETH ES 30 ML SUSPENSION UDCUP PO PRN (08:00)
[2024-07-31] MEDS ORDERED: PROMETHAZINE HCL 25 MG TABLET PO PRN (08:00)
[2024-07-31] MEDS ORDERED: MAGNESIUM HYDROXIDE SUSPENSION 30 ML UDCUP PO PRN (08:00)
[2024-07-31] MEDS ORDERED: HydrOXYzine PAMOATE 50 MG CAPSULE PO PRN (08:00)
[2024-07-31] MEDS ORDERED: HALOPERIDOL 5 MG TABLET PO PRN (08:00)
[2024-07-31] MEDS: FOLIC ACID 1 MG TABLET PO SCH (08:59)
[2024-07-31] MEDS: MULTIVITAMINS WITH MINERALS, THERAPEUTIC TABLET PO SCH (08:59)
[2024-07-31] MEDS: THIAMINE 100 MG TABLET PO SCH (08:59)
[2024-07-31] MEDS: CEPHALEXIN MONOHYDRATE 500 MG CAPSULE PO ONE (08:59)
[2024-07-31] MEDS: DiphenhydrAMINE HCL 25 MG CAPSULE PO SCH (09:00)
[2024-07-31] MEDS: DULoxetine HCL 20 MG CAPSULE PO SCH (09:06)
[2024-07-31] MEDS: NALTREXONE HCL 50 MG TABLET PO SCH (09:06)
[2024-07-31] MEDS: HALOPERIDOL DECANOATE 100 MG/ML VIAL IM ONE (09:06)
[2024-07-31 18:00] VITALS: O2SAT 97
[2024-07-31] MEDS ORDERED: HALOPERIDOL 10 MG TABLET PO SCH (21:00)
[2024-07-31] MEDS: MELATONIN 5 MG TABLET PO SCH (21:36)
[2024-07-31] MEDS: HALOPERIDOL 10 MG TABLET PO SCH (21:36)
[2024-07-31] MEDS: INFLUENZA VIRUS VACCINE TVS (6MO+) 2024-25/PF 45 MCG/0.5 ML SYRINGE IM. ONE (22:45)
[2024-08-01 21:59] VITALS: BP 100/66; PULSE 91; RESP 16; TEMP 97.9; O2SAT 97
[2024-08-02 08:51] VITALS: BP 104/53; PULSE 75; RESP 16; TEMP 97; O2SAT 96
[2024-08-02] MEDS: NICOTINE 21 MG/24 HOUR PATCH TD PRN (11:02)
[2024-08-02 20:37] VITALS: BP 89/65; PULSE 82; RESP 16; TEMP 98.5; O2SAT 95
[2024-08-03 08:57] LABS: BASOPHILS % (AUTO) 0.3 % (0.0-2.0); EOSINOPHILS % (AUTO) 1.8 % (1.0-6.0); HEMATOCRIT 42.7 % (41-53); HEMOGLOBIN 14.3 g/dL (13.5-17.5); LYMPHOCYTES % (AUTO) 20.7 % (22.0-44.0); MEAN CORPUSCULAR HEMOGLOBIN 29.9 pg (26.0-34.0); MEAN CORPUSCULAR HGB CONC 33.5 G/dL (31.0-37.0); MEAN CORPUSCULAR VOLUME 89 fL (80-100); MONOCYTES # (AUTO) 1.1 K/uL (0.1-1.0); NEUTROPHILS # (AUTO) 6.5 K/uL (1.8-7.7); NEUTROPHILS % (AUTO) 66.2 % (40.0-70.0); PLATELET COUNT (AUTO) 228 K/uL (150-450); RED BLOOD CELL COUNT(AUTO) 4.78 MIL/uL (4.50-5.90); RED CELL DISTRIBUTION WIDTH 14.7 % (11.5-14.5); WHITE BLOOD COUNT (AUTO) 9.8 K/uL (4.5-11.0)
[2024-08-03 20:44] VITALS: BP 104/50; PULSE 98; RESP 18; TEMP 98.4; O2SAT 96
[2024-08-04 09:07] VITALS: BP 113/67; PULSE 92; RESP 18; TEMP 97.7; O2SAT 99
[2024-08-04] MEDS ORDERED: TUBERCULIN, PURIFIED PROTEIN DERIVATIVE 5 TU/0.1 ML SYRINGE ID ONE (13:15)
[2024-08-04 20:30] VITALS: RESP 18
[2024-08-05 09:25] VITALS: BP 136/78; PULSE 91; RESP 18; TEMP 98.5; O2SAT 96
[2024-08-05 20:00] VITALS: BP 100/65; PULSE 82; RESP 16; TEMP 98.4; O2SAT 97
[2024-08-06 09:03] VITALS: BP 136/68; PULSE 92; RESP 16; TEMP 98.4; O2SAT 96
[2024-08-06 22:11] VITALS: BP 112/71; PULSE 91; RESP 16; TEMP 98.4; O2SAT 97
[2024-08-07 10:40] VITALS: BP 129/62; PULSE 59; RESP 17; TEMP 98.2; O2SAT 95
[2024-08-07] MEDS ORDERED: DULO20CA71 PO (15:19)
[2024-08-07] MEDS ORDERED: HALO100V36 IM (15:19)
[2024-08-07] MEDS: HALOPERIDOL 10 MG TABLET PO SCH (21:22)
[2024-08-07 22:46] VITALS: BP 117/76; PULSE 90; RESP 16; TEMP 98.2; O2SAT 95
[2024-08-08] MEDS: ACETAMINOPHEN 325 MG TABLET PO PRN (04:49)
[2024-08-08 04:56] VITALS: BP 128/63; PULSE 92; RESP 18; TEMP 98.1; O2SAT 98
[2024-08-08 05:56] VITALS: RESP 17
[2024-08-08 09:09] VITALS: BP 88/57; PULSE 88; RESP 17; TEMP 96.5; O2SAT 95
[2024-08-08 12:20] VITALS: BP 110/60
[2024-08-14] MEDS ORDERED: HALOPERIDOL DECANOATE 100 MG/ML VIAL IM SCH (09:00)
== END 2024-08-08 16:50 | disposition home or self-care (01) | DRG 885 ==
LOC: EMS 01:29 → B2S 19:44
PROVIDERS: ADMIT Psychiatry & Neurology Psychiatry; ATTEND Psychiatry & Neurology Psychiatry
PROC: GZHZZZZ Group Psychotherapy (ICD-10-PCS; principal; 2024-07-31)
PROC: GZ51ZZZ Individual Psychotherapy, Behavioral (ICD-10-PCS; 2024-07-31)
PROC: GZ58ZZZ Individual Psychotherapy, Cognitive-Behavioral (ICD-10-PCS; 2024-07-31)
DX: F25.1 Schizoaffective disorder, depressive type (principal); R45.851 Suicidal ideations; N39.0 Urinary tract infection, site not specified; I10 Essential (primary) hypertension; Z20.822 Contact with and (suspected) exposure to COVID-19; E78.5 Hyperlipidemia, unspecified; J44.9 Chronic obstructive pulmonary disease, unspecified; G40.409 Other generalized epilepsy and epileptic syndromes, not intractable, without status epilepticus; F16.90 Hallucinogen use, unspecified, uncomplicated; F17.210 Nicotine dependence, cigarettes, uncomplicated; F25.0 Schizoaffective disorder, bipolar type; Z88.8 Allergy status to other drugs, medicaments and biological substances
CPT/HCPCS: 80048; 80307; 81001; 85025; 87086; 99285; G0480; J1631

== ENCOUNTER 2024-08-10 05:10 | Inpatient (IN) | payer OTHER ==
[~2024-08-10] VITALS: Ht 165.1 cm; Wt 65.3 kg
[~2024-08-10 05:10] MED LIST changes: +DULO20CA71 PO; +HALO100V36 IM
[2024-08-10 05:57] LABS: COVID AG,FIA SOURCE NASAL SWAB
[2024-08-10 06:04] LABS: APPEARANCE,URINE CLEAR (CLEAR); BILIRUBIN,URINE NEGATIVE (NEGATIVE); COLOR,URINE LIGHT YELLOW (YELLOW); GLUCOSE, URINE (UA) NEGATIVE (NEGATIVE); KETONES,URINE NEGATIVE (NEGATIVE); LEUKOCYTE ESTERASE ,URINE NEGATIVE (NEGATIVE); NITRATE,URINE NEGATIVE (NEGATIVE); OCCULT BLOOD,URINE TRACE (NEGATIVE); PH,URINE 6.5 (5.0-8.0); PH,URINE DRUG SCREEN 6.5 (5.0-8.0); PROTEIN,URINE TRACE mg/dL (NEGATIVE); SPECIFIC GRAVITIY, URINE 1.019 (1.003-1.030); UROBILINOGEN,URINE <=1.0 mg/dL (<=1.0)
[2024-08-10 06:05] LABS: ALCOHOL, URINE DRUG SCREEN NEGATIVE (NEGATIVE); AMPHET/METH SCREEN,URINE NEGATIVE (NEGATIVE); BARBITURATE SCREEN, URINE NEGATIVE (NEGATIVE); BENZODIAZEPINES SCREEN,URINE NEGATIVE (NEGATIVE); CANNABINOID SCREEN,URINE POSITIVE (NEGATIVE); COCAINE SCREEN,URINE POSITIVE (NEGATIVE); METHADONE SCREEN, URINE NEGATIVE (NEGATIVE); OPIATE SCREEN,URINE NEGATIVE (NEGATIVE); PHENCYCLIDINE SCREEN,URINE NEGATIVE (NEGATIVE)
[2024-08-10 06:11] LABS: BACTERIA,URINE None Seen /HPF (None Seen); RBC,URINE 0-2 /HPF (0-2); SQUAMOUS EPITHELIAL CELL,UR Few /LPF (None Seen); WBC,URINE None Seen /HPF (0-5)
[2024-08-10 06:28] LABS: SARS-COV2 (COVID) ANTIGEN,FIA Negative (Negative)
[2024-08-10] MEDS: SODIUM CHLORIDE 0.9% 1,000 ML IV ONE (07:05)
[2024-08-10] MEDS: LORazepam 2 MG TABLET PO PRN (11:45)
[2024-08-10] MEDS: OLANZapine 5 MG RAPDIS TABLET PO PRN (11:45)
[2024-08-10 11:51] VITALS: O2SAT 99
[2024-08-10] MEDS ORDERED: PROMETHAZINE HCL 25 MG TABLET PO PRN (17:15)
[2024-08-10] MEDS ORDERED: GuaiFENesin/D-METHORPHAN [SUGAR-FREE] 200-20MG/10 ML SYRUP UDCUP PO PRN (17:15)
[2024-08-10] MEDS ORDERED: LOPERAMIDE HCL 2 MG CAPSULE PO PRN ×2 (17:15)
[2024-08-10] MEDS ORDERED: MAGNESIUM HYDROXIDE SUSPENSION 30 ML UDCUP PO PRN (17:15)
[2024-08-10] MEDS ORDERED: MAG HYDROX/ALUMINUM HYD/SIMETH ES 30 ML SUSPENSION UDCUP PO PRN (17:15)
[2024-08-10] MEDS ORDERED: ZOLPIDEM TARTRATE 10 MG TABLET PO PRN (17:15)
[2024-08-10] MEDS ORDERED: HydrOXYzine PAMOATE 50 MG CAPSULE PO PRN (17:15)
[2024-08-10] MEDS ORDERED: HALOPERIDOL 5 MG TABLET PO PRN (17:30)
[2024-08-10 18:00] VITALS: BP 122/63; PULSE 80; RESP 18; TEMP 98.3; O2SAT 98
[2024-08-10] MEDS: CYANOCOBALAMIN 1,000 MCG/ML VIAL IM ONE (18:08)
[2024-08-10 19:00] VITALS: BP 117/66; PULSE 86; RESP 16; TEMP 98.1; O2SAT 99
[2024-08-10 19:52] VITALS: BP 122/63; PULSE 80; RESP 18; TEMP 98.4; O2SAT 98
[2024-08-10] MEDS: MELATONIN 5 MG TABLET PO SCH (20:10)
[2024-08-10] MEDS: HALOPERIDOL 10 MG TABLET PO SCH (20:10)
[2024-08-10 20:53] VITALS: BP 122/74; RESP 16; TEMP 97.3; O2SAT 97
[2024-08-10 22:01] VITALS: RESP 17
[2024-08-11] MEDS: OMEGA-3/DHA/EPA/FISH OIL 1,000 MG CAPSULE PO SCH (08:05)
[2024-08-11] MEDS: MULTIVITAMINS WITH MINERALS, THERAPEUTIC TABLET PO SCH (08:05)
[2024-08-11] MEDS: NALTREXONE HCL 50 MG TABLET PO SCH (08:05)
[2024-08-11] MEDS: FOLIC ACID 1 MG TABLET PO SCH (08:05)
[2024-08-11] MEDS: THIAMINE 100 MG TABLET PO SCH (08:05)
[2024-08-11 08:12] VITALS: BP 118/69; PULSE 82; RESP 18; TEMP 98; O2SAT 96
[2024-08-11 11:38] VITALS: RESP 17
[2024-08-11] MEDS: ACETAMINOPHEN 325 MG TABLET PO PRN (11:38)
[2024-08-11 12:38] VITALS: RESP 16
[2024-08-11] MEDS: INFLUENZA VIRUS VACCINE TVS (6MO+) 2024-25/PF 45 MCG/0.5 ML SYRINGE IM. ONE (14:00)
[2024-08-11 20:00] VITALS: BP 138/59; PULSE 75; RESP 16; TEMP 98; O2SAT 100
[2024-08-11 20:47] VITALS: BP 138/59; PULSE 75; RESP 16; TEMP 98; O2SAT 100
[2024-08-11 21:00] VITALS: BP 144/79; PULSE 83; RESP 18; TEMP 98.5; O2SAT 97
[2024-08-11] MEDS: ZOLPIDEM TARTRATE 10 MG TABLET PO PRN (21:50)
[2024-08-12 03:00] VITALS: BP 128/71; PULSE 83; RESP 18; TEMP 98.5; O2SAT 96
[2024-08-12 07:00] VITALS: BP 104/63; PULSE 83; RESP 18; TEMP 98; O2SAT 96
[2024-08-12 08:09] LABS: CHOL/HDL RATIO 2.6 (4.2-7.3)
[2024-08-12 08:17] LABS: HEMOGLOBIN A1C 5.7 % (3.8-5.6)
[2024-08-12 08:27] VITALS: BP 136/83; PULSE 74; PULSE 75; RESP 18; TEMP 98.6; O2SAT 95; O2SAT 98
[2024-08-12] MEDS: NICOTINE 21 MG/24 HOUR PATCH TD PRN (11:07)
[2024-08-12 15:00] VITALS: BP 107/77; PULSE 92; RESP 18; TEMP 97.8; O2SAT 97
[2024-08-12 19:00] VITALS: BP 99/85; PULSE 89; RESP 16; TEMP 98.5; O2SAT 100
[2024-08-12 20:00] VITALS: BP 149/90; PULSE 89; RESP 18; TEMP 98.4; O2SAT 99
[2024-08-13] VITALS (9 sets, daily range): BP systolic 126–162; BP diastolic 63–89; PULSE 76–92; RESP 17–18; TEMP 97.5–98.3; O2SAT 95–98
[2024-08-14 10:51] VITALS: RESP 18
[2024-08-14 14:43] VITALS: BP 127/55; PULSE 82; RESP 18; TEMP 97.8; O2SAT 96
[2024-08-14] MEDS: BENZTROPINE MESYLATE 2 MG TABLET PO SCH (17:21)
[2024-08-14 19:23] VITALS: BP 131/64; PULSE 86; RESP 18; TEMP 98.1; O2SAT 95
[2024-08-14 20:18] VITALS: BP 137/73; PULSE 86; RESP 18; TEMP 98.7; O2SAT 98
[2024-08-14 23:02] VITALS: RESP 18
[2024-08-15 08:09] VITALS: BP 125/82; PULSE 83; RESP 18; TEMP 98.4; O2SAT 98
[2024-08-15 08:35] VITALS: BP 125/82; PULSE 83; RESP 17; TEMP 96.9; O2SAT 97
[2024-08-15 20:09] VITALS: RESP 18
[2024-08-15 20:21] VITALS: BP 138/84; PULSE 91; RESP 16; TEMP 98.6; O2SAT 96
[2024-08-15 21:09] VITALS: RESP 18
[2024-08-15 22:02] VITALS: BP 134/86; PULSE 87; RESP 18; TEMP 97.6; O2SAT 98
[2024-08-16 08:06] VITALS: BP 119/65; PULSE 83; RESP 19; TEMP 98; O2SAT 98
[2024-08-16 10:00] VITALS: BP 132/82; PULSE 80; RESP 17; TEMP 98; O2SAT 98
[2024-08-16 20:08] VITALS: BP 156/76; PULSE 80; RESP 19; TEMP 97.8; O2SAT 95
[2024-08-16 22:22] VITALS: BP 135/84; PULSE 91; RESP 18; TEMP 97.7; O2SAT 97
[2024-08-17 08:18] VITALS: PULSE 86; RESP 17; TEMP 98; O2SAT 97
[2024-08-17] MEDS ORDERED: ESZOPICLONE 3 MG TABLET PO PRN (10:00)
[2024-08-17] MEDS ORDERED: GABAPENTIN 300 MG CAPSULE PO PRN (10:00)
[2024-08-17 17:25] VITALS: BP 130/80; PULSE 88; RESP 17; TEMP 97.5; O2SAT 98
[2024-08-17 20:29] VITALS: BP 135/78; PULSE 80; RESP 18; TEMP 98.1; O2SAT 99
[2024-08-17 21:57] VITALS: BP 128/78; PULSE 90; RESP 18; TEMP 97; O2SAT 97
[2024-08-17] MEDS ORDERED: BENZ2TAB84 PO (22:52)
[2024-08-18 08:32] VITALS: BP 102/68; PULSE 92; RESP 19; TEMP 97.9; O2SAT 95
== END 2024-08-18 10:50 | disposition home or self-care (01) | DRG 885 ==
LOC: EMS 05:12 → B2X 15:52
PROVIDERS: ADMIT Psychiatry & Neurology Psychiatry; ATTEND Psychiatry & Neurology Psychiatry
PROC: GZ58ZZZ Individual Psychotherapy, Cognitive-Behavioral (ICD-10-PCS; principal; 2024-08-10)
PROC: GZHZZZZ Group Psychotherapy (ICD-10-PCS; 2024-08-10)
PROC: GZ56ZZZ Individual Psychotherapy, Supportive (ICD-10-PCS; 2024-08-10)
DX: F25.1 Schizoaffective disorder, depressive type (principal); R45.851 Suicidal ideations; F17.200 Nicotine dependence, unspecified, uncomplicated; Z20.822 Contact with and (suspected) exposure to COVID-19; F41.9 Anxiety disorder, unspecified; I10 Essential (primary) hypertension; F14.10 Cocaine abuse, uncomplicated; J44.9 Chronic obstructive pulmonary disease, unspecified; G40.409 Other generalized epilepsy and epileptic syndromes, not intractable, without status epilepticus; E78.5 Hyperlipidemia, unspecified; F12.10 Cannabis abuse, uncomplicated; G47.00 Insomnia, unspecified; Z79.899 Other long term (current) drug therapy; Z88.8 Allergy status to other drugs, medicaments and biological substances; Z63.9 Problem related to primary support group, unspecified; Z59.9 Problem related to housing and economic circumstances, unspecified; Z65.3 Problems related to other legal circumstances; Z55.9 Problems related to education and literacy, unspecified; Z91.148 Patient's other noncompliance with medication regimen for other reason
CPT/HCPCS: 80061; 80173; 80307; 81001; 83036; 87081; 99285; J3420; J7030

== ENCOUNTER 2024-11-15 23:46 | Inpatient (IN) | payer MEDICARE, MEDICAID ==
[~2024-11-15] VITALS: Ht 170.2 cm; Wt 67.6 kg
[~2024-11-15 23:46] MED LIST changes: -ARIP10TA38 PO; -ARIP400S3 IM; +BENZ2TAB84 PO; -DIPH-1243 PO; -DULO20CA71 PO; -HALO100V36 IM; -MELA5TAB40 PO
[2024-11-16 00:21] LABS: COVID AG,FIA SOURCE NASAL SWAB
[2024-11-16 00:24] LABS: SARS-COV2 (COVID) ANTIGEN,FIA Negative (Negative)
[2024-11-16 00:30] LABS: BASOPHILS % (AUTO) 0.9 % (0.0-2.0); EOSINOPHILS % (AUTO) 1.7 % (1.0-6.0); HEMATOCRIT 44.6 % (41-53); HEMOGLOBIN 14.9 g/dL (13.5-17.5); LYMPHOCYTES % (AUTO) 25.5 % (22.0-44.0); MEAN CORPUSCULAR HEMOGLOBIN 28.8 pg (26.0-34.0); MEAN CORPUSCULAR HGB CONC 33.4 G/dL (31.0-37.0); MEAN CORPUSCULAR VOLUME 86 fL (80-100); MONOCYTES # (AUTO) 1.2 K/uL (0.1-1.0); MONOCYTES % (AUTO) 10.7 % (2.0-9.0); NEUTROPHILS # (AUTO) 7.2 K/uL (1.8-7.7); NEUTROPHILS % (AUTO) 61.2 % (40.0-70.0); PLATELET COUNT (AUTO) 236 K/uL (150-450); RED BLOOD CELL COUNT(AUTO) 5.18 MIL/uL (4.50-5.90); RED CELL DISTRIBUTION WIDTH 14.6 % (11.5-14.5); WHITE BLOOD COUNT (AUTO) 11.7 K/uL (4.5-11.0)
[2024-11-16 00:42] LABS: CALCIUM, TOTAL 9.9 mg/dL (8.8-10.5); CARBON DIOXIDE 32 mmol/L (22-29); CREATININE 1.11 mg/dL (0.60-1.30); GLOMERULAR FILTR. RATE CALC > 60 mL/min (>60); GLUCOSE,RANDOM 99 mg/dL (70-110); SODIUM SERUM 144 mmol/L (136-145); UREA NITROGEN, BLOOD 15 mg/dL (7-18)
[2024-11-16 00:47] LABS: ALBUMIN 4.1 g/dL (3.4-5.0); BILIRUBIN,DIRECT 0.1 mg/dL (0.00-0.20); BILIRUBIN,TOTAL 0.2 mg/dL (0.1-1.0); TOTAL PROTEIN, SERUM 8.4 g/dL (6.4-8.2)
[2024-11-16 00:54] LABS: ALCOHOL, BLOOD (SERUM) < 3 mg/dL (0-10)
[2024-11-16] MEDS ORDERED: haloperidoL 5 MG TABLET PO PRN (04:00)
[2024-11-16 12:09] VITALS: BP 98/67; PULSE 79; RESP 17; TEMP 96.7; O2SAT 96
[2024-11-16] MEDS ORDERED: PNEUMOCOCCAL VACCINE POLYVALENT 0.5 ML SYRINGE [PPSV23] IM. ONE (12:15)
[2024-11-16 13:43] LABS: ANION GAP 5 mmol/L (8-16)
[2024-11-16 14:37] LABS: CHLORIDE 107 mmol/L (98-107)
[2024-11-16 18:14] VITALS: BP 155/89; PULSE 98; RESP 17; TEMP 98.4; O2SAT 100
[2024-11-16 18:17] VITALS: BP 155/84; PULSE 82; RESP 18; TEMP 98.4; O2SAT 100
[2024-11-16 20:10] VITALS: BP 158/87; PULSE 82; RESP 16; TEMP 98.4; O2SAT 100
[2024-11-16] MEDS ORDERED: IBUPROFEN 600 MG TABLET PO PRN (22:30)
[2024-11-16] MEDS ORDERED: MAGNESIUM HYDROXIDE SUSPENSION 30 ML UDCUP PO PRN (22:30)
[2024-11-16] MEDS ORDERED: BENZOCAINE/MENTHOL [CEPACOL] LOZENGE PO PRN (22:30)
[2024-11-16] MEDS ORDERED: PETROLATUM,WHITE 28 GM JELLY TP PRN (22:30)
[2024-11-16] MEDS ORDERED: LOPERAMIDE HCL 2 MG CAPSULE PO PRN (22:30)
[2024-11-16] MEDS ORDERED: DOCUSATE SODIUM 100 MG CAPSULE PO PRN (22:30)
[2024-11-16] MEDS ORDERED: BACITRACIN 28 GM OINTMENT TP PRN (22:30)
[2024-11-16] MEDS ORDERED: ONDANSETRON 4 MG TABLET PO PRN (22:30)
[2024-11-16] MEDS ORDERED: OMEPRAZOLE 20 MG CAPSULE PO PRN (22:30)
[2024-11-16] MEDS ORDERED: CloNIDine HCL 0.1 MG TABLET PO PRN (22:30)
[2024-11-16] MEDS ORDERED: ALBUTEROL SULFATE HFA 90 MCG/PUFF 8 GM INHALER IH PRN (22:30)
[2024-11-16] MEDS ORDERED: ACETAMINOPHEN 325 MG TABLET PO PRN (22:30)
[2024-11-16 23:45] VITALS: BP 142/72; PULSE 72; RESP 16; TEMP 98.7; O2SAT 98
[2024-11-16 23:50] VITALS: BP 109/72; PULSE 72; RESP 16; TEMP 98.7; O2SAT 98
[2024-11-16] MEDS: ZOLPIDEM TARTRATE 10 MG TABLET PO PRN (23:57)
[2024-11-17] MEDS: OMEGA-3/DHA/EPA/FISH OIL 1,000 MG CAPSULE PO SCH (08:31)
[2024-11-17 08:51] VITALS: BP 147/98; PULSE 84; RESP 18; TEMP 98.8; O2SAT 98
[2024-11-17] MEDS: BENZTROPINE MESYLATE 2 MG TABLET PO SCH (20:31)
[2024-11-17] MEDS: HALOPERIDOL 10 MG PO SCH (20:31)
[2024-11-17 21:30] VITALS: BP 114/68; PULSE 82; RESP 18; TEMP 98; O2SAT 98
[2024-11-18 09:11] VITALS: BP 150/87; PULSE 72; RESP 18; TEMP 98.7; O2SAT 99
[2024-11-18 20:14] VITALS: BP 102/65; PULSE 85; RESP 17; TEMP 98.1; O2SAT 98
[2024-11-19 08:27] VITALS: BP 101/60; PULSE 91; RESP 18; TEMP 97.8; O2SAT 98
[2024-11-19] MEDS: NICOTINE 21 MG/24 HOUR PATCH TD SCH (08:42)
[2024-11-19] MEDS: LORazepam 2 MG TABLET PO PRN (14:32)
[2024-11-19 20:08] VITALS: BP 142/87; PULSE 70; RESP 18; TEMP 97.3; O2SAT 98
[2024-11-20 15:13] VITALS: BP 116/70; PULSE 94; RESP 18; TEMP 97.3; O2SAT 100
[2024-11-20 20:45] VITALS: BP 122/71; PULSE 64; RESP 16; TEMP 98.1; O2SAT 96
[2024-11-21 01:07] LABS: HEPATITIS C AB (EIA) Non Reactive (Non Reactive)
[2024-11-21 09:00] VITALS: BP 167/92; PULSE 109; RESP 18; TEMP 97.5; O2SAT 98
[2024-11-21 12:19] VITALS: BP 128/90; PULSE 92; RESP 18; TEMP 97.5; O2SAT 98
[2024-11-21 20:09] VITALS: BP 129/78; PULSE 95; RESP 17; TEMP 97.7; O2SAT 97
[2024-11-22 08:06] VITALS: BP 110/64; PULSE 100; RESP 17; TEMP 97.6; O2SAT 98
[2024-11-22] MEDS ORDERED: BENZ2TAB84 PO (13:07)
[2024-11-22] MEDS: MAG HYDROX/ALUMINUM HYD/SIMETH ES 30 ML SUSPENSION UDCUP PO PRN (15:00)
== END 2024-11-22 16:30 | disposition home or self-care (01) | DRG 885 ==
LOC: EMS 23:59 → B2X 11-16 08:57 → EMS 11-16 09:59 → B2S 11-21 14:29
PROVIDERS: ADMIT Psychiatry & Neurology Psychiatry; ATTEND Psychiatry & Neurology Psychiatry
DX: F20.9 Schizophrenia, unspecified (principal); F41.9 Anxiety disorder, unspecified; G47.00 Insomnia, unspecified; Z20.822 Contact with and (suspected) exposure to COVID-19; I10 Essential (primary) hypertension; K21.9 Gastro-esophageal reflux disease without esophagitis; F19.10 Other psychoactive substance abuse, uncomplicated; F17.200 Nicotine dependence, unspecified, uncomplicated
CPT/HCPCS: 80048; 80076; 85025; 86803; 87340; 99285; G0480

== ENCOUNTER 2024-12-22 02:00 | Emergency (ER) | payer MEDICARE, MEDICAID ==
[~2024-12-22] VITALS: Ht 165.1 cm; Wt 65.9 kg
[~2024-12-22 02:00] MED LIST changes: -NALT50TA33 PO; -OMEG100033 PO
[2024-12-22 02:27] VITALS: BP 98/69; PULSE 68; RESP 18; TEMP 97.3; O2SAT 96
[2024-12-22 02:56] LABS: BASOPHILS % (AUTO) 1.1 % (0.0-2.0); EOSINOPHILS % (AUTO) 2.6 % (1.0-6.0); HEMATOCRIT 41.6 % (41-53); HEMOGLOBIN 13.7 g/dL (13.5-17.5); LYMPHOCYTES # (AUTO) 2.9 K/uL (1.0-4.8); LYMPHOCYTES % (AUTO) 30.5 % (22.0-44.0); MEAN CORPUSCULAR HEMOGLOBIN 28.7 pg (26.0-34.0); MEAN CORPUSCULAR VOLUME 87 fL (80-100); MONOCYTES # (AUTO) 1.1 K/uL (0.1-1.0); MONOCYTES % (AUTO) 11.4 % (2.0-9.0); NEUTROPHILS # (AUTO) 5.2 K/uL (1.8-7.7); NEUTROPHILS % (AUTO) 54.4 % (40.0-70.0); PLATELET COUNT (AUTO) 215 K/uL (150-450); RED BLOOD CELL COUNT(AUTO) 4.78 MIL/uL (4.50-5.90); RED CELL DISTRIBUTION WIDTH 14.9 % (11.5-14.5); WHITE BLOOD COUNT (AUTO) 9.5 K/uL (4.5-11.0)
[2024-12-22 03:05] LABS: ANION GAP 4 mmol/L (8-16); CALCIUM, TOTAL 8.9 mg/dL (8.8-10.5); CARBON DIOXIDE 32 mmol/L (22-29); CHLORIDE 104 mmol/L (98-107); CREATININE 1.07 mg/dL (0.60-1.30); GLOMERULAR FILTR. RATE CALC > 60 mL/min (>60); GLUCOSE,RANDOM 95 mg/dL (70-110); SODIUM SERUM 140 mmol/L (136-145); UREA NITROGEN, BLOOD 19 mg/dL (7-18)
[2024-12-22 03:10] LABS: ALANINE AMINOTRANSFERASE 39 U/L (12-78); ALBUMIN 3.8 g/dL (3.4-5.0); ALKALINE PHOSPHATASE 99 U/L (46-116); ASPARTATE AMINOTRANSFERASE 77 U/L (15-37); BILIRUBIN,TOTAL 0.3 mg/dL (0.1-1.0); TOTAL PROTEIN, SERUM 7.5 g/dL (6.4-8.2)
[2024-12-22 03:12] LABS: ALCOHOL, BLOOD (SERUM) < 3 mg/dL (0-10)
[2024-12-22 03:34] LABS: COVID AG,FIA SOURCE NASAL SWAB
[2024-12-22] MEDS: ziprasidone HCL 20 MG CAPSULE PO ONE (03:51)
[2024-12-22 03:58] LABS: SARS-COV2 (COVID) ANTIGEN,FIA Negative (Negative)
== END 2024-12-22 06:07 | disposition home or self-care (01) ==
LOC: EMS 05:49
DX: F20.9 Schizophrenia, unspecified (principal); F12.90 Cannabis use, unspecified, uncomplicated; I10 Essential (primary) hypertension; F17.210 Nicotine dependence, cigarettes, uncomplicated; F15.10 Other stimulant abuse, uncomplicated; Z88.8 Allergy status to other drugs, medicaments and biological substances; Z79.899 Other long term (current) drug therapy; Z20.822 Contact with and (suspected) exposure to COVID-19
CPT/HCPCS: 99283; 87426; 80048; 80076; 85025; 36415; G0480